=== PATIENT | male | born 1965 | race African-American/Black ===

== ENCOUNTER 2017-12-22 20:12 | Emergency (ER) | payer MEDICARE, OTHER ==
[2017-12-22 20:23] VITALS: BP 164/86; PULSE 81; RESP 18; TEMP 98.3; O2SAT 97
[2017-12-22] MEDS ORDERED: VITA1000 PO (20:36)
[2017-12-22] MEDS ORDERED: CLON0.3T PO (20:36)
[2017-12-22] MEDS ORDERED: PRED10 PO (20:36)
[2017-12-22] MEDS ORDERED: PANT40TA3 PO (20:36)
[2017-12-22] MEDS ORDERED: TACR1 PO (20:36)
[2017-12-22] MEDS ORDERED: TAMS5CAP PO (20:36)
[2017-12-22] MEDS ORDERED: MYCO250C PO (20:36)
--- NOTE | 2017-12-22 20:36 | PD ---
HPI Chief Complaint: Edema Time Seen by Provider: 20:34 Travel History International Travel<30 days: No Contact w/Intl Traveler<30days: No Traveled to known affect area: No History of Present Illness HPI The patient is a 52 year old male who presents to the [facility] emergency department with a history of 2 concerns. The patient reports that he has upper extremity swelling in his hands and an irritated sensation in his eyes. The patient is concerned as he developed some irritation to his eyes and generalized swelling when he was first diagnosed with renal failure. The patient reports that he underwent a kidney transplant 4 years ago and last had his blood drawn a month and a half ago and was doing well. The patient reports that he had his kidney transplant done at [facility] in [place]. 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 He reports that they are silica-based blocks. He reports that he has had gloves, safety goggles, and mask on on when he does this, however his hands do get wet through the gloves. 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 He reports that there has been some yellowing to his fingernails worse on the right compared to the left hand. He reports that he does submerge his right hand more than his left in the water that the blocks are wet in. The patient's other recent history is significant for having a cough and congestion. He reports that he is taking Mucinex and has been bringing up some sputum. He reports that the sputum has been green in color. He reports that the symptoms have been present for the last 2 days. Otherwise on review of systems, he denies having any recent fevers, headache, loss of vision, red eyes , neck pain, chest pain, shortness of breath, abdominal pain, vomiting, diarrhea , urinary symptoms, or neurologic symptoms. [facility] Past Medical History Narrative Medical The patient's past medical history is significant for renal failure on hemodialysis up until a kidney transplant 4 years ago, history of hypertension. The patient reports that his last eye exam was 1 year ago. He denies wearing contacts or eyeglasses Diminished Hearing: No Hypertension: Yes Medical other: Yes (ESRD) Immunizations Current: Yes Past Surgical History Narrative Surgical The patient's past surgical history is significant for bilateral inguinal hernia repair, fistula placement in the left upper extremity, kidney transplant. Abdominal Surgery: Yes (HERNIA X 2) Endocrine Surgery: Yes (KIDNEY [place]) Other Surgery: Yes (FISTULA) Social History Alcohol Use: No Tobacco Use: No Substance Use: No (HX) Allergies-Medications (Allergen,Severity, Reaction): Coded Allergies: tetanus and diphtheria toxoids (Verified Allergy, Severe, 12/22/17) Reported Meds & Prescriptions Reported Meds & Active Scripts Active Erythromycin Opth Oint 5 Mg/Gm Oint 1 Applic EACH EYE QID Reported Labetalol (Labetalol HCl) 200 Mg Tab 400 Mg PO BID Vitamin D-1000 (Cholecalciferol) 1,000 Unit Tab 2,000 Units PO DAILY Flomax (Tamsulosin HCl) 0.4 Mg Cap 0.4 Mg PO BID Prograf (Tacrolimus) 1 Mg Cap 4 Mg PO BID Mycophenolate (Mycophenolate Mofetil) 250 Mg Cap 750 Mg PO BID Prednisone 10 Mg Tab 10 Mg PO DAILY Pantoprazole (Pantoprazole Sodium) 40 Mg Tab 40 Mg PO DAILY Clonidine (Clonidine HCl) 0.3 Mg Tab 0.3 Mg PO BID Review of Systems Except as stated in HPI: all other systems reviewed are Neg General / Constitutional: No: Fever Eyes: Positive: Other (Irritated eyes), No: Visual changes HENT: Positive: Congestion, No: Headaches Cardiovascular: Positive: Edema, No: Chest Pain or Discomfort Respiratory: Positive: Cough, No: Shortness of Breath Gastrointestinal: No: Nausea, Vomiting, Diarrhea, Abdominal Pain Genitourinary: No: Dysuria Musculoskeletal: No: Pain Skin: Positive Dryness, No Rash Neurologic: No: Weakness, Focal Abnormalities, Change in Mentation, Slurred Speech, Sensory Disturbance Psychiatric: No: Depression Endocrine: No: Polydipsia Hematologic/Lymphatic: No: Easy Bruising Physical Exam Narrative General: The patient is a well-developed well-nourished male in no acute distress Head and Neck exam: Head is normocephalic atraumatic. Eyes: EOMI, pupils are equal round and reactive to light. No pain with eye movement. The patient's funduscopic examination is limited due to the patient' s small pupils. Proparacaine was used to anesthetize the patient's eyes. Tee- Pen was used to check the patient's eye pressures bilaterally which is documented in the ED course. Floor seen testing of the eyes revealed no evidence of abrasion or corneal ulceration. Nose: Midline septum with pink mucous membranes Mouth: Dentition unremarkable. Moist mucus membranes. Posterior oropharynx is not erythematous. No tonsillar hypertrophy. Uvula midline. Airway patent. Neck: No palpable lymphadenopathy. No nuchal rigidity. No thyromegaly. Cardiovascular: Regular rate and rhythm without murmurs, gallops, or rubs. Lungs: Clear to auscultation bilaterally. No wheezes, rhonchi, or rales. Abdomen: Soft, without tenderness to palpation in all 4 quadrants of the abdomen. No guarding, rebound, or rigidity. Normal bowel sounds are audible. No tenderness on palpation of McBurney's point. Extremities: No clubbing, cyanosis, or edema. 2+ pulses in all 4 extremities. No calf tenderness on palpation. On examination of the area of interest, bilateral hands, there is no significant edema visualized. The patient does have dry skin on his palms. The patient has on the right ventral surface of the thumb, finger pad a ruptured vesicle noted. There is no surrounding erythema, tenderness, or drainage noted. The patient has a yellow discoloration of the fingernails of the right hand. This is more prominent on the right hand compared to the left. The patient has no discoloration of the toenails of his feet. There is no thickening of the nails noted. Back: No spinous process tenderness to palpation. No costovertebral angle tenderness to palpation. Neurologic Exam: Grossly nonfocal. Skin Exam: Intact skin that is warm and dry. Data Data Last Documented VS Vital Signs Date Time Temp Pulse Resp B/P (MAP) Pulse Ox O2 Delivery O2 Flow Rate FiO2 12/22/17 22:36 12/22/17 21:29 99 Room Air 12/22/17 20:38 80 17 12/22/17 20:23 98.3 Orders Orders Complete Blood Count With Diff (12/22/17 20:51) Comprehensive Metabolic Panel (12/22/17 20:51) Urinalysis - C+S If Indicated (12/22/17 20:51) Thyroid Stimulating Hormone (12/22/17 20:51) Iv Access Insert/Monitor (12/22/17 20:51) Ecg Monitoring (12/22/17 20:51) Oximetry (12/22/17 20:51) Proparacaine 0.5% Opth Soln (Alcaine 0.5 (12/22/17 21:00) Ed Discharge Order (12/22/17 22:43) Labs Laboratory Tests Test 12/22/17 20:54 12/22/17 20:58 White Blood Count 7.8 TH/MM3 Red Blood Count 4.80 MIL/MM3 Hemoglobin 12.9 GM/DL Hematocrit 39.4 % Mean Corpuscular Volume 82.0 FL Mean Corpuscular Hemoglobin 26.8 PG Mean Corpuscular Hemoglobin Concent 32.7 % Red Cell Distribution Width 15.2 % Platelet Count 199 TH/MM3 Mean Platelet Volume 9.2 FL Neutrophils (%) (Auto) 77.9 % Lymphocytes (%) (Auto) 11.9 % Monocytes (%) (Auto) 8.6 % Eosinophils (%) (Auto) 0.9 % Basophils (%) (Auto) 0.7 % Neutrophils # (Auto) 6.0 TH/MM3 Lymphocytes # (Auto) 0.9 TH/MM3 Monocytes # (Auto) 0.7 TH/MM3 Eosinophils # (Auto) 0.1 TH/MM3 Basophils # (Auto) 0.1 TH/MM3 CBC Comment DIFF FINAL Differential Comment Blood Urea Nitrogen 13 MG/DL Creatinine 1.43 MG/DL Random Glucose 127 MG/DL Total Protein 6.8 GM/DL Albumin 3.7 GM/DL Calcium Level 9.3 MG/DL Alkaline Phosphatase 118 U/L Aspartate Amino Transf (AST/SGOT) 27 U/L Alanine Aminotransferase (ALT/SGPT) 29 U/L Total Bilirubin 0.6 MG/DL Sodium Level 142 MEQ/L Potassium Level 3.8 MEQ/L Chloride Level 108 MEQ/L Carbon Dioxide Level 27.5 MEQ/L Anion Gap 7 MEQ/L Estimat Glomerular Filtration Rate 52 ML/MIN Thyroid Stimulating Hormone 3rd Gen 1.850 uIU/ML Urine Color LIGHT-YELLOW Urine Turbidity CLEAR Urine pH 7.0 Urine Specific [place] 1.020 Urine Protein NEG mg/dL Urine Glucose (UA) NEG mg/dL Urine Ketones NEG mg/dL Urine Occult Blood NEG Urine Nitrite NEG Urine Bilirubin NEG Urine Urobilinogen LESS THAN 2.0 MG/DL Urine Leukocyte Esterase NEG Urine RBC 1 /hpf Urine WBC 2 /hpf Microscopic Urinalysis Comment CULT NOT INDICATED MDM Medical Decision Making Medical Screen Exam Complete: Yes Emergency Medical Condition: Yes Medical Record Reviewed: Yes Differential Diagnosis Edema of the hands: Kidney failure, versus hypoalbuminemia, versus hypothyroid disorder, versus contact dermatitis Gritty sensation to the eyes: Glaucoma, versus dryness from decongestant use with upper respiratory infection, versus conjunctivitis, versus contact dermatitis from silica from work Narrative Course During the course of the patient's emergency department visit, the patient's history, examination, and differential diagnosis were reviewed with the patient. The patient was placed on a color television console monitor with oximetry and frequent blood pressure monitoring. The patient had IV access obtained and blood work sent for analysis. Visual acuity was done and the patient's vision in the left eye is 20/20, 20/25 in the right, 20/20 bilaterally. The patient was initially provided proparacaine ophthalmic solution to his eyes. A Tee-Pen will be used to assess his eye pressures. Fluorescing will be used to examine the patient's eyes for any evidence of abrasion or corneal ulceration. Fluorescein exam revealed no evidence of ulceration or abrasion. Tee-Pen testing revealed higher pressure on the right eye compared to the left. The right eye was 24, left eye 14. I spoke to Dr. Thornton regarding this patient's case, the hot mill tin roller on-call at approximately 9:35 PM. She did agree to see him in the office in the morning. She recommended that he call the office at 8 AM when it opens. The office number is [phone] The patient's laboratory studies were reviewed and remarkable for a white count of 7.8, hemoglobin 12.9, platelets 199 with 77.9 neutrophils 8.6 monocytes, CMP is remarkable for chloride of 108, creatinine 1.43, glucose 127, alk phos 118, TSH 1.85. Urinalysis is within normal limits. The patient will be given a copy of his laboratory studies. The patient was given information regarding the hot mill tin roller office number and address for follow-up in the morning for recheck of his eyes. She recommended for the gritty sensation in his eyes erythromycin ointment. I suspect that the patient' s swelling in his hands are related to contact exposures at work. The patient plans to purchase a different pair of work gloves to better detect his hands. The patient is resting comfortably and feels better, is alert and in no distress. The patient's results and examination findings were discussed with the patient. The repeat examination is unremarkable and benign. The history, exam, diagnostic testing, and current condition do not suggest any significant pathology to warrant further testing, continued ED treatment, admission, or surgical evaluation at this point. The vital signs have been stable. The patient does not have uncontrollable pain, intractable vomiting, or other significant symptoms. The patient's condition is stable and appropriate for discharge. The patient will pursue further outpatient evaluation with a primary care physician or other designated or consulting physician as indicated in the discharge instructions. The patient expressed understanding and was agreeable with this plan. 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 The right eye was 24, left eye 14. I spoke to Dr. Thornton regarding this patient's case, the hot mill tin roller on-call at Primary Care Physician 1 week Patient Instructions: Blurred Vision (ED), Contact Dermatitis (ED), General Instructions Med/Other Pt SpecificInfo: Prescription(s) given Scripts Erythromycin Opth Oint (Erythromycin Opth Oint) 5 Mg/Gm Oint 1 APPLIC EACH EYE QID for Infection, #1 TUBE 0 Refills Prov: Olya Ray MD 12/22/17 Disposition: 01 DISCHARGE HOME Condition: Stable Olya Ray MD December 22, 2017 20:36
[2017-12-22] MEDS ORDERED: LABE200T2 PO (20:37)
[2017-12-22 20:38] VITALS: BP 167/108; PULSE 80; RESP 17; O2SAT 98
[2017-12-22] MEDS ORDERED: PROPARACAINE HCL 0.5% OPHT SOLN 15 ML BTL EACH EYE ONE (21:00)
[2017-12-22 21:12] LABS: BASOPHIL # 0.1 TH/MM3 (0-0.2); BASOPHIL % 0.7 % (0.0-2.0); EOSINOPHIL # 0.1 TH/MM3 (0-0.4); EOSINOPHIL % 0.9 % (0.0-4.0); HEMATOCRIT 39.4 % (39.0-51.0); HEMOGLOBIN 12.9 GM/DL (13.0-17.0); LYMPH % 11.9 % (9.0-44.0); LYMPHOCYTE # 0.9 TH/MM3 (1.0-4.8); MEAN CORPUSCULAR HEMOGLOBIN 26.8 PG (27.0-34.0); MEAN CORPUSCULAR HGB CONC 32.7 % (32.0-36.0); MEAN PLATELET VOLUME 9.2 FL (7.0-11.0); MONO % 8.6 % (0.0-8.0); MONOCYTE # 0.7 TH/MM3 (0-0.9); NEUT % 77.9 % (16.0-70.0); PLATELET COUNT 199 TH/MM3 (150-450); RED CELL DISTRIBUTION WIDTH 15.2 % (11.6-17.2); WHITE BLOOD COUNT 7.8 TH/MM3 (4.0-11.0)
[2017-12-22 21:14] LABS: BILIRUBIN, URINE NEG (NEG); BLOOD, URINE NEG (NEG); GLUCOSE,URINE NEG (NEG); KETONE, URINE NEG (NEG); NITRITE,URINE NEG (NEG); URINE COLOR LIGHT-YELLOW (YELLW/STRAW); URINE LEUKOCYTE ESTERASE NEG (NEG)
[2017-12-22 21:29] VITALS: O2SAT 99
[2017-12-22 21:31] LABS: ALT (GPT) 29 U/L (12-78)
[2017-12-22 21:34] LABS: ALBUMIN 3.7 GM/DL (3.4-5.0); AST (GOT) 27 U/L (15-37); BICARBONATE 27.5 MEQ/L (21.0-32.0); BLOOD UREA NITROGEN 13 MG/DL (7-18); CALCIUM 9.3 MG/DL (8.5-10.1); CHLORIDE 108 MEQ/L (98-107); CREATININE 1.43 MG/DL (0.60-1.30); GLOMERULAR FILTRATION RATE 52 ML/MIN (>89); GLUCOSE,RANDOM 127 MG/DL (74-106); SODIUM (NA) 142 MEQ/L (136-145)
[2017-12-22 21:41] LABS: ALKALINE PHOSPHATASE 118 U/L (45-117); TOTAL BILIRUBIN ADULT 0.6 MG/DL (0.2-1.0); TOTAL PROTEIN 6.8 GM/DL (6.4-8.2)
[2017-12-22] MEDS ORDERED: ERYTOIN10 EACH EYE (21:46)
== END 2017-12-22 22:59 | disposition home or self-care (01) ==
LOC: NEPC 20:12
DX: L24.5 Irritant contact dermatitis due to other chemical products (principal); H40.051 Ocular hypertension, right eye; I12.0 Hypertensive chronic kidney disease with stage 5 chronic kidney disease or end stage renal disease; N18.6 End stage renal disease
CPT/HCPCS: 80053; 81001; 84443; 85025; 99283